=== PATIENT | male | born 1990 | race Two or more races ===

== ENCOUNTER 2020-02-21 10:37 | Emergency (ER) | payer OTHER ==
[2020-02-21 10:45] VITALS: BP 143/82
--- NOTE | 2020-02-21 12:00 | ER Document Report ---
HPI - HPI Time Seen by Provider: 02/21/20 11:51 Notes: 29-year-old male presents to the emergency room today with complaints of right 4th and 5th finger avulsion after using mandolin last night around 9:30 PM while he was making dinner. Bleeding is controlled. Tetanus is up-to-date, was vacc inated last year. he came to get checked out since his insisted that he get evaluated. Denies any numbness or tingling to bilateral upper extremities. Denies any other area of injury. Denies fevers, chills, chest pain,palpitations, shortness of breath, dyspnea, nausea, vomiting, diarrhea, abdominal pain, hematuria,blurred vision, double vision, loss of vision, speech changes, LH, dizziness, syncope, weakness, bowel or bladder dysfunction, saddle anesthesia, numbness or tingling in bilateral upper or lower extremities equally, muscle paralysis, weakness in bilateral upper or lower extremities equally or rash. Past Medical History - General Information source: Patient - Social History Smoking Status: Unknown if Ever Smoked Family History: Reviewed & Not Pertinent Vertical Provider Document - CONSTITUTIONAL Agree With Documented VS: Yes Exam Limitations: No Limitations General Appearance: WD/WN Notes: MEDICATIONS: I agree with the patient medications as charted by the RN. ALLERGIES: I agree with the allergies as charted by the RN. PAST MEDICAL HISTORY/PAST SURGICAL HISTORY: Reviewed and agree as charted by RN. SOCIAL HISTORY: Reviewed and agree as charted by RN. FAMILY HISTORY: No significant familial comorbid conditions directly related to patient complaint EXAM: Reviewed vital signs as charted by RN. PHYSICAL EXAMINATION:reviewed vital signs by RN GENERAL: Well-appearing, well-nourished and in no acute distress. HEAD: Atraumatic, normocephalic. EYES: Pupils equal round and reactive to light, extraocular movements intact, sclera anicteric, conjunctiva are normal. ENT: Nares patent, oropharynx clear without exudates. Moist mucous membranes. NECK: Normal range of motion, supple without lymphadenopathy LUNGS: Breath sounds clear to auscultation bilaterally and equal. No wheezes rales or rhonchi. HEART: Regular rate and rhythm without murmurs ABDOMEN: Soft, nontender, nondistended abdomen. No guarding, no rebound. No masses appreciated. Musculoskeletal: Normal range of motion, no pitting or edema. No cyanosis. NEUROLOGICAL: Cranial nerves grossly intact. Normal speech, normal gait. Normal sensory, motor exams PSYCH: Normal mood, normal affect. SKIN: Warm, Dry, normal turgor, no rashes or lesions noted. Fourth and fifth distal aspect of phalanx with superficial skin avulsion to tip approximately 0.3 cm with both skin avulsions. cap refill <3 seconds. Program Architect + 2 BUE equally. radial pulses + 2 BUE equally. Negative kanavels sign. No open wounds or drai nage from wrist. No vascular compromise.No body crepitus or focal area of TTP. Motor and sensory function of ulnar, radial, medial nerves intact bilaterally and equally. strength 5/5 in BUE equally. Course - Re-evaluation Re-evalutation: 02/21/20 12:00 Afebrile vital stable no distress. Nurses notes reviewed. Discussed with sameer monterroso that he does have a skin avulsion, there is no need for any suturing. His tetanus is up-to-date, received it last year. Discussed with patient that his wound is well over 12 hours old, is considered contaminated wound, will place him on prophylactic antibiotics, Keflex twice a day for 5 days. Advised to wash with soap and water twice a day, monitor for any signs of infection such as redness, swelling, drainage. To follow-up with his primary care provider within the next 24 to 48 hours as needed. No signs of infection. Normal motor and sensory function to affected fingers. After performing a Medical Screening Examination, I estimate there is LOW risk for OPEN FRACTURE, COMPARTMENT SYNDROME, TENDON RUPTURE, ACUTE NEUROVASCULAR INJURY, or RETAINED FOREIGN BODY, thus I consider the discharge disposition reasonable. Also, there is no evidence or peritonitis, sepsis, or toxicity. I have reevaluated this patient multiple times and no significant life threatening changes are noted. The patient and I have discussed the diagnosis and risks, and we agree with discharging home with close follow-up with the understanding that symptoms and presentations can change. We also discussed returning to the Emergency Department immediately if new or worsening symptoms occur. We have discussed the symptoms which are most concerning (e.g., changing or worsening pain, fever, numbness, weakness, cool or painful digits) that necessitate immediate return. - Vital Signs Vital signs: Temp Pulse Resp BP Pulse Ox 98.4 F 55 L 16 143/82 H 98 02/21/20 10:41 02/21/20 10:41 02/21/20 10:41 02/21/20 10:41 02/21/20 10:41 - Laboratory Results Critical Laboratory Results Reviewed: No Critical Results - Radiology Results Critical Radiology Results Reviewed: No Critical Results Discharge - Discharge Clinical Impression: Avulsion, skin Condition: Stable Disposition: HOME, SELF-CARE Additional Instructions: You have a skin avulsion of your fingers. He do not need any x-rays. Your tetanus is up-to-date since he got it last year. Please wash with soap and water twice a day. Monitor for any signs of infection such as redness, swelling, drainage. You are placed on prophylactic antibiotics, Keflex, twice a day, please take this with food. Follow-up with your primary care provider as needed. Return immediately for any new or worsening symptoms. Follow up with primary care provider, call tomorrow to make followup appointment. Prescriptions: Cephalexin Monohydrate [Keflex 500 mg Capsule] 500 mg PO BID #10 capsule Referrals: PEDRO SIEGEL MD [[facility] STAFF] - Follow up as needed
== END 2020-02-21 11:59 | disposition home or self-care (01) ==
LOC: ER 10:37
DX: S61.204A Unspecified open wound of right ring finger without damage to nail, initial encounter (principal); S61.206A Unspecified open wound of right little finger without damage to nail, initial encounter; W27.4XXA Contact with kitchen utensil, initial encounter; Y93.G1 Activity, food preparation and clean up; Y92.000 Kitchen of unspecified non-institutional (private) residence as the place of occurrence of the external cause
CPT/HCPCS: 99283